=== PATIENT | female | born 1950 | race Caucasian/White ===

== ENCOUNTER 2017-11-14 11:47 | Emergency (ER) | payer MEDICARE, OTHER ==
[2017-11-14] MEDS: KETOROLAC 15 MG INJ IM (15:35)
[2017-11-14 15:41] LABS: ADD MAN DIFF? NO
[2017-11-14 15:43] LABS: WHITE BLOOD COUNT 6.5 10^3/ul (4.8-10.8)
[2017-11-14 15:43] LABS: BASOPHILS % 0.5 % (0.0-2.0); EOSINOPHILS # 0.1 10^3/ul (0.0-0.5); EOSINOPHILS % 0.8 % (0.0-7.0); HEMATOCRIT 52.1 % (37.0-47.0); HEMOGLOBIN 17.6 g/dl (12.0-16.0); LYMPHOCYTES # 2.4 10^3/ul (0.8-2.9); LYMPHOCYTES % 36.8 % (15.0-51.0); MEAN CORPUSCULAR HEMOGLOBIN 32.2 pg (29.0-33.0); MEAN CORPUSCULAR HGB CONC 33.8 g/dl (32.0-37.0); MEAN CORPUSCULAR VOLUME 95.4 fl (82.0-101.0); MEAN PLATELET VOLUME 8.8 fl (7.4-10.4); MONOCYTE # 0.6 10^3/ul (0.3-0.9); MONOCYTES % 8.7 % (0.0-11.0); NEUTROPHIL # 3.5 10^3/ul (1.6-7.5); NEUTROPHILS % 52.9 % (39.0-77.0); PLATELET COUNT 308 10^3/UL (140-415); RED BLOOD COUNT 5.46 10^6/ul (4.20-5.40); RED CELL DISTRIBUTION WIDTH 14.9 % (11.5-14.5)
[2017-11-14 16:07] LABS: ANION GAP 17 (8-16); BLOOD UREA NITROGEN 18 mg/dl (7-20); CARBON DIOXIDE 23 mmol/L (21-31); CHLORIDE 107 mmol/L (97-110); CREATININE 1.15 mg/dl (0.44-1.00); GLUCOSE 127 mg/dl (70-220); POTASSIUM 3.5 mmol/L (3.5-5.1); SODIUM 143 mmol/L (135-144)
== END 2017-11-14 17:49 | disposition home or self-care (01) ==
LOC: E/R 11:47
DX: M79.604 Pain in right leg (principal); I10 Essential (primary) hypertension; F17.210 Nicotine dependence, cigarettes, uncomplicated
CPT/HCPCS: 73550; 80048; 85025; 96372; 99284-25

== ENCOUNTER 2017-11-18 21:27 | Inpatient (IN) | payer MEDICARE, OTHER ==
[2017-11-19 02:34] LABS: ADD MAN DIFF? NO
[2017-11-19 02:35] LABS: WHITE BLOOD COUNT 5.8 10^3/ul (4.8-10.8)
[2017-11-19 02:35] LABS: BASOPHILS % 0.3 % (0.0-2.0); EOSINOPHILS # 0.1 10^3/ul (0.0-0.5); HEMATOCRIT 50.6 % (37.0-47.0); HEMOGLOBIN 16.9 g/dl (12.0-16.0); LYMPHOCYTES # 2.3 10^3/ul (0.8-2.9); LYMPHOCYTES % 39.4 % (15.0-51.0); MEAN CORPUSCULAR HEMOGLOBIN 32.6 pg (29.0-33.0); MEAN CORPUSCULAR HGB CONC 33.4 g/dl (32.0-37.0); MEAN CORPUSCULAR VOLUME 97.5 fl (82.0-101.0); MEAN PLATELET VOLUME 9.1 fl (7.4-10.4); MONOCYTE # 0.6 10^3/ul (0.3-0.9); MONOCYTES % 9.8 % (0.0-11.0); NEUTROPHIL # 2.9 10^3/ul (1.6-7.5); NEUTROPHILS % 49.3 % (39.0-77.0); PLATELET COUNT 284 10^3/UL (140-415); RED BLOOD COUNT 5.19 10^6/ul (4.20-5.40); RED CELL DISTRIBUTION WIDTH 14.8 % (11.5-14.5)
[2017-11-19 02:57] LABS: ANION GAP 15 (8-16); BLOOD UREA NITROGEN 18 mg/dl (7-20); CALCIUM 9.7 mg/dl (8.4-10.2); CARBON DIOXIDE 30 mmol/L (21-31); CHLORIDE 107 mmol/L (97-110); GLUCOSE 126 mg/dl (70-220); POTASSIUM 3.5 mmol/L (3.5-5.1); SODIUM 148 mmol/L (135-144)
[2017-11-19 02:58] LABS: INR 0.94; PARTIAL THROMBOPLASTIN TIME 29.5 Sec (25.0-35.0); PROTIME 12.7 Sec (11.9-14.9)
[2017-11-19] MEDS: morphine 4 MG/ML VIAL IV (03:09)
[2017-11-19] MEDS: ONDANSETRON 4 MG INJ IV (03:09)
[2017-11-19] MEDS: hydrALAzine 20 MG INJ IV ×3 (03:35→21:37)
[2017-11-19] MEDS ORDERED: ACETAMINOPHEN 325 MG TAB PO (04:30)
[2017-11-19] MEDS ORDERED: ALBUTEROL/IPRATROPIUM (NEB) 3 ML AMP HHN (04:30)
[2017-11-19] MEDS ORDERED: NACL 0.9% 3 ML SYG IV (04:30)
[2017-11-19] MEDS: SOD CHLORIDE 0.9% 1,000 ML IV ×3 (06:35→23:32)
[2017-11-19 06:54] LABS: ADD MAN DIFF? NO
[2017-11-19 06:59] LABS: WHITE BLOOD COUNT 6.8 10^3/ul (4.8-10.8)
[2017-11-19 06:59] LABS: BASOPHILS % 0.4 % (0.0-2.0); EOSINOPHILS # 0.1 10^3/ul (0.0-0.5); EOSINOPHILS % 0.7 % (0.0-7.0); HEMATOCRIT 50.1 % (37.0-47.0); HEMOGLOBIN 16.7 g/dl (12.0-16.0); LYMPHOCYTES # 2.5 10^3/ul (0.8-2.9); LYMPHOCYTES % 36.7 % (15.0-51.0); MEAN CORPUSCULAR HEMOGLOBIN 32.5 pg (29.0-33.0); MEAN CORPUSCULAR HGB CONC 33.3 g/dl (32.0-37.0); MEAN CORPUSCULAR VOLUME 97.5 fl (82.0-101.0); MEAN PLATELET VOLUME 9.2 fl (7.4-10.4); MONOCYTE # 0.6 10^3/ul (0.3-0.9); MONOCYTES % 8.4 % (0.0-11.0); NEUTROPHIL # 3.6 10^3/ul (1.6-7.5); NEUTROPHILS % 53.7 % (39.0-77.0); PLATELET COUNT 298 10^3/UL (140-415); RED BLOOD COUNT 5.14 10^6/ul (4.20-5.40); RED CELL DISTRIBUTION WIDTH 14.7 % (11.5-14.5)
[2017-11-19 07:16] LABS: ALANINE AMINOTRANSFERASE 15 IU/L (13-69); ALBUMIN 3.7 g/dl (3.3-4.9); ALBUMIN/GLOBULIN RATIO 0.88; ALKALINE PHOSPHATASE 79 IU/L (42-121); ANION GAP 14 (8-16); ASPARTATE AMINO TRANSFERASE 28 IU/L (15-46); BILIRUBIN,INDIRECT 0.3 mg/dl (0-1.1); BILIRUBIN,TOTAL 0.3 mg/dl (0.2-1.3); BLOOD UREA NITROGEN 17 mg/dl (7-20); CALCIUM 9.2 mg/dl (8.4-10.2); CARBON DIOXIDE 24 mmol/L (21-31); CHLORIDE 110 mmol/L (97-110); CREATININE 0.91 mg/dl (0.44-1.00); GLUCOSE 116 mg/dl (70-220); LACTATE DEHYDROGENASE 630 IU/L (313-618); POTASSIUM 3.4 mmol/L (3.5-5.1); SODIUM 145 mmol/L (135-144); TOTAL PROTEIN 7.9 g/dl (6.1-8.1); URIC ACID 7.3 mg/dl (3.1-7.9)
[2017-11-19] MEDS: morphine 2 MG INJ IV ×4 (08:52→22:20)
[2017-11-19] MEDS: HEPARIN 5,000 UNIT/0.5 ML VIAL SC ×2 (09:08→20:07)
[2017-11-19] MEDS: POTASSIUM CHLORIDE (SR) 20 MEQ TAB PO ×2 (12:25→17:37)
[2017-11-19] MEDS: METOPROLOL 25 MG TAB PO ×2 (12:25→20:12)
[2017-11-19 13:47] LABS: ADD UMIC NO; UR ASCORBIC ACID NEGATIVE (NEGATIVE); UR BILIRUBIN (Dip) NEGATIVE (NEGATIVE); UR BLOOD (Dip) NEGATIVE (NEGATIVE); UR CLARITY CLEAR (CLEAR); UR COLOR YELLOW (YELLOW); UR GLUCOSE (Dip) NEGATIVE (NEGATIVE); UR KETONES (Dip) NEGATIVE (NEGATIVE); UR LEUKOCYTE ESTERASE (Dip) NEGATIVE Leu/ul (NEGATIVE); UR NITRITE (Dip) NEGATIVE (NEGATIVE); UR SPECIFIC GRAVITY (Dip) 1.014 (1.003-1.030); UR TOTAL PROTEIN (Dip) NEGATIVE (NEGATIVE); UR UROBILINOGEN (Dip) NEGATIVE (NEGATIVE)
[2017-11-19] MEDS: SOD CHLORIDE 0.9% 100 ML (14:16)
[2017-11-19] MEDS: IOHEXOL 300MG/ML 150 ML BTL (14:17)
[2017-11-19] MEDS: HYDROCODONE/APAP (5/325) TAB PO (15:43)
[2017-11-20] MEDS: morphine 2 MG INJ IV ×4 (02:29→20:23)
[2017-11-20 05:54] LABS: ADD MAN DIFF? NO
[2017-11-20 06:10] LABS: BASOPHILS % 0.4 % (0.0-2.0); EOSINOPHILS # 0.1 10^3/ul (0.0-0.5); EOSINOPHILS % 2.1 % (0.0-7.0); HEMATOCRIT 47.2 % (37.0-47.0); HEMOGLOBIN 15.6 g/dl (12.0-16.0); LYMPHOCYTES # 2.1 10^3/ul (0.8-2.9); LYMPHOCYTES % 36.8 % (15.0-51.0); MEAN CORPUSCULAR HEMOGLOBIN 32.4 pg (29.0-33.0); MEAN CORPUSCULAR HGB CONC 33.1 g/dl (32.0-37.0); MEAN CORPUSCULAR VOLUME 97.9 fl (82.0-101.0); MEAN PLATELET VOLUME 9.1 fl (7.4-10.4); MONOCYTE # 0.7 10^3/ul (0.3-0.9); NEUTROPHIL # 2.8 10^3/ul (1.6-7.5); NEUTROPHILS % 48.5 % (39.0-77.0); PLATELET COUNT 291 10^3/UL (140-415); RED BLOOD COUNT 4.82 10^6/ul (4.20-5.40)
[2017-11-20 06:10] LABS: WHITE BLOOD COUNT 5.7 10^3/ul (4.8-10.8)
[2017-11-20 06:32] LABS: ANION GAP 12 (8-16); BLOOD UREA NITROGEN 14 mg/dl (7-20); CALCIUM 9.3 mg/dl (8.4-10.2); CARBON DIOXIDE 25 mmol/L (21-31); CHLORIDE 112 mmol/L (97-110); CREATININE 0.92 mg/dl (0.44-1.00); GLUCOSE 101 mg/dl (70-220); MAGNESIUM 1.9 mg/dl (1.7-2.5); PHOSPHORUS 3.5 mg/dl (2.5-4.9); POTASSIUM 4.4 mmol/L (3.5-5.1); SODIUM 145 mmol/L (135-144)
[2017-11-20] MEDS: SOD CHLORIDE 0.9% 1,000 ML IV (06:45)
[2017-11-20] MEDS: SENNA/DOCUSATE NA (8.6MG/50MG) TAB PO (08:18)
[2017-11-20] MEDS: POLYETHYLENE GLYCOL 17 GM PACKET PO (08:19)
[2017-11-20] MEDS: METOPROLOL 25 MG TAB PO ×2 (08:19→21:16)
[2017-11-20 08:32] LABS: CREATINE KINASE 75 IU/L (23-200)
[2017-11-20] MEDS: HEPARIN 5,000 UNIT/0.5 ML VIAL SC (08:41)
[2017-11-20 09:04] LABS: CARCINOEMBRYONIC ANTIGEN 9.6 ng/ml (0.0-5.0)
[2017-11-20] MEDS: hydrALAzine 20 MG INJ IV ×2 (09:36→20:24)
[2017-11-21] MEDS: morphine 2 MG INJ IV ×4 (00:29→22:35)
[2017-11-21] MEDS: HYDROmorphONE 2 MG TAB PO (02:35)
[2017-11-21 06:17] LABS: ADD MAN DIFF? NO
[2017-11-21 06:20] LABS: WHITE BLOOD COUNT 5.2 10^3/ul (4.8-10.8)
[2017-11-21 06:20] LABS: BASOPHILS % 0.4 % (0.0-2.0); EOSINOPHILS # 0.2 10^3/ul (0.0-0.5); EOSINOPHILS % 4.6 % (0.0-7.0); HEMATOCRIT 46.3 % (37.0-47.0); HEMOGLOBIN 15.4 g/dl (12.0-16.0); LYMPHOCYTES # 2.2 10^3/ul (0.8-2.9); LYMPHOCYTES % 42.6 % (15.0-51.0); MEAN CORPUSCULAR HEMOGLOBIN 32.5 pg (29.0-33.0); MEAN CORPUSCULAR HGB CONC 33.3 g/dl (32.0-37.0); MEAN CORPUSCULAR VOLUME 97.7 fl (82.0-101.0); MEAN PLATELET VOLUME 9.2 fl (7.4-10.4); MONOCYTE # 0.6 10^3/ul (0.3-0.9); MONOCYTES % 12.1 % (0.0-11.0); NEUTROPHIL # 2.1 10^3/ul (1.6-7.5); NEUTROPHILS % 40.1 % (39.0-77.0); PLATELET COUNT 312 10^3/UL (140-415); RED BLOOD COUNT 4.74 10^6/ul (4.20-5.40); RED CELL DISTRIBUTION WIDTH 14.6 % (11.5-14.5)
[2017-11-21 06:57] LABS: ANION GAP 13 (8-16); BLOOD UREA NITROGEN 12 mg/dl (7-20); CARBON DIOXIDE 26 mmol/L (21-31); CHLORIDE 108 mmol/L (97-110); CREATININE 0.94 mg/dl (0.44-1.00); GLUCOSE 101 mg/dl (70-220); MAGNESIUM 1.9 mg/dl (1.7-2.5); SODIUM 143 mmol/L (135-144)
[2017-11-21 07:21] LABS: CANCER ANTIGEN 125 25.4 U/ml (0.0-35.0)
[2017-11-21] MEDS: SENNA/DOCUSATE NA (8.6MG/50MG) TAB PO (08:29)
[2017-11-21] MEDS: LISINOPRIL 20 MG TAB PO (08:32)
[2017-11-21] MEDS: METOPROLOL 25 MG TAB PO ×2 (08:33→21:38)
[2017-11-21] MEDS: POLYETHYLENE GLYCOL 17 GM PACKET PO ×2 (08:38→15:35)
[2017-11-21] MEDS: ENOXAPARIN 40 MG/0.4 ML SYG SC (08:42)
[2017-11-21] MEDS: BACLOFEN 10 MG TAB PO ×2 (13:12→21:36)
[2017-11-21] MEDS: SOD CHLORIDE 0.9% 100 ML (20:17)
[2017-11-21] MEDS: IOHEXOL 300MG/ML 150 ML BTL (20:18)
[2017-11-22] MEDS: morphine 2 MG INJ IV ×4 (02:27→21:49)
[2017-11-22 06:14] LABS: ADD MAN DIFF? NO
[2017-11-22 06:24] LABS: WHITE BLOOD COUNT 5.1 10^3/ul (4.8-10.8)
[2017-11-22 06:24] LABS: BASOPHILS % 0.6 % (0.0-2.0); EOSINOPHILS # 0.2 10^3/ul (0.0-0.5); EOSINOPHILS % 4.7 % (0.0-7.0); HEMATOCRIT 43.3 % (37.0-47.0); HEMOGLOBIN 14.4 g/dl (12.0-16.0); LYMPHOCYTES # 1.8 10^3/ul (0.8-2.9); MEAN CORPUSCULAR HEMOGLOBIN 32.3 pg (29.0-33.0); MEAN CORPUSCULAR HGB CONC 33.3 g/dl (32.0-37.0); MEAN CORPUSCULAR VOLUME 97.1 fl (82.0-101.0); MEAN PLATELET VOLUME 9.5 fl (7.4-10.4); MONOCYTE # 0.6 10^3/ul (0.3-0.9); MONOCYTES % 11.2 % (0.0-11.0); NEUTROPHIL # 2.4 10^3/ul (1.6-7.5); NEUTROPHILS % 47.3 % (39.0-77.0); PLATELET COUNT 316 10^3/UL (140-415); RED BLOOD COUNT 4.46 10^6/ul (4.20-5.40); RED CELL DISTRIBUTION WIDTH 14.4 % (11.5-14.5)
[2017-11-22 06:44] LABS: PHOSPHORUS 4.4 mg/dl (2.5-4.9)
[2017-11-22 06:44] LABS: MAGNESIUM 1.8 mg/dl (1.7-2.5)
[2017-11-22 06:49] LABS: ANION GAP 11 (8-16); BLOOD UREA NITROGEN 12 mg/dl (7-20); CALCIUM 8.9 mg/dl (8.4-10.2); CARBON DIOXIDE 26 mmol/L (21-31); CHLORIDE 109 mmol/L (97-110); CREATININE 0.93 mg/dl (0.44-1.00); GLUCOSE 95 mg/dl (70-220); SODIUM 142 mmol/L (135-144)
[2017-11-22] MEDS: BACLOFEN 10 MG TAB PO ×3 (08:27→20:34)
[2017-11-22] MEDS: METOPROLOL 25 MG TAB PO ×2 (08:28→21:00)
[2017-11-22] MEDS: ENOXAPARIN 40 MG/0.4 ML SYG SC (08:30)
[2017-11-22] MEDS: LISINOPRIL 20 MG TAB PO (08:31)
[2017-11-22] MEDS: POLYETHYLENE GLYCOL 17 GM PACKET PO (08:46)
[2017-11-22] MEDS: SENNA/DOCUSATE NA (8.6MG/50MG) TAB PO (08:46)
[2017-11-22 15:42] LABS: MYOGLOBIN 37 mcg/L (< 67)
[2017-11-23] MEDS: morphine 2 MG INJ IV ×2 (03:09→09:29)
[2017-11-23] MEDS: hydrALAzine 20 MG INJ IV ×2 (03:09→20:24)
[2017-11-23 06:01] LABS: ADD MAN DIFF? NO
[2017-11-23 06:10] LABS: BASOPHILS % 0.6 % (0.0-2.0); EOSINOPHILS # 0.2 10^3/ul (0.0-0.5); EOSINOPHILS % 3.5 % (0.0-7.0); HEMATOCRIT 47.4 % (37.0-47.0); HEMOGLOBIN 15.8 g/dl (12.0-16.0); LYMPHOCYTES # 2.2 10^3/ul (0.8-2.9); LYMPHOCYTES % 43.7 % (15.0-51.0); MEAN CORPUSCULAR HEMOGLOBIN 32.4 pg (29.0-33.0); MEAN CORPUSCULAR HGB CONC 33.3 g/dl (32.0-37.0); MEAN CORPUSCULAR VOLUME 97.3 fl (82.0-101.0); MEAN PLATELET VOLUME 9.6 fl (7.4-10.4); MONOCYTE # 0.4 10^3/ul (0.3-0.9); MONOCYTES % 8.7 % (0.0-11.0); NEUTROPHIL # 2.2 10^3/ul (1.6-7.5); NEUTROPHILS % 43.3 % (39.0-77.0); PLATELET COUNT 339 10^3/UL (140-415); RED BLOOD COUNT 4.87 10^6/ul (4.20-5.40); RED CELL DISTRIBUTION WIDTH 14.2 % (11.5-14.5)
[2017-11-23 06:10] LABS: WHITE BLOOD COUNT 5.1 10^3/ul (4.8-10.8)
[2017-11-23 06:35] LABS: ANION GAP 15 (8-16); BLOOD UREA NITROGEN 13 mg/dl (7-20); CARBON DIOXIDE 27 mmol/L (21-31); CHLORIDE 107 mmol/L (97-110); CREATININE 0.89 mg/dl (0.44-1.00); GLUCOSE 101 mg/dl (70-220); SODIUM 145 mmol/L (135-144)
[2017-11-23] MEDS: SENNA/DOCUSATE NA (8.6MG/50MG) TAB PO (09:17)
[2017-11-23] MEDS: POLYETHYLENE GLYCOL 17 GM PACKET PO (09:17)
[2017-11-23] MEDS: METOPROLOL 25 MG TAB PO (09:18)
[2017-11-23] MEDS: BACLOFEN 10 MG TAB PO ×3 (09:18→20:22)
[2017-11-23] MEDS: LISINOPRIL 20 MG TAB PO (09:19)
[2017-11-23] MEDS: ENOXAPARIN 40 MG/0.4 ML SYG SC (09:28)
[2017-11-23] MEDS: AMLODIPINE 10 MG TAB PO (13:11)
[2017-11-23] MEDS: HYDROmorphONE 0.5 MG/0.5 ML SYG IV ×4 (15:57→22:51)
[2017-11-24] MEDS: hydrALAzine 20 MG INJ IV (02:36)
[2017-11-24] MEDS: HYDROCODONE/APAP (10/325) TAB PO ×2 (02:37→08:00)
[2017-11-24 05:37] LABS: ADD MAN DIFF? NO
[2017-11-24 05:47] LABS: BASOPHILS % 0.6 % (0.0-2.0); EOSINOPHILS # 0.1 10^3/ul (0.0-0.5); EOSINOPHILS % 2.6 % (0.0-7.0); HEMATOCRIT 45.1 % (37.0-47.0); LYMPHOCYTES % 39.1 % (15.0-51.0); MEAN CORPUSCULAR HEMOGLOBIN 32.1 pg (29.0-33.0); MEAN CORPUSCULAR HGB CONC 33.3 g/dl (32.0-37.0); MEAN CORPUSCULAR VOLUME 96.6 fl (82.0-101.0); MEAN PLATELET VOLUME 9.2 fl (7.4-10.4); MONOCYTE # 0.6 10^3/ul (0.3-0.9); MONOCYTES % 10.9 % (0.0-11.0); NEUTROPHIL # 2.4 10^3/ul (1.6-7.5); NEUTROPHILS % 46.6 % (39.0-77.0); PLATELET COUNT 318 10^3/UL (140-415); RED BLOOD COUNT 4.67 10^6/ul (4.20-5.40); RED CELL DISTRIBUTION WIDTH 14.4 % (11.5-14.5)
[2017-11-24] MEDS: ONDANSETRON 4 MG INJ IV (05:50)
[2017-11-24 06:25] LABS: ANION GAP 12 (8-16); BLOOD UREA NITROGEN 11 mg/dl (7-20); CALCIUM 9.1 mg/dl (8.4-10.2); CARBON DIOXIDE 27 mmol/L (21-31); CHLORIDE 108 mmol/L (97-110); CREATININE 0.94 mg/dl (0.44-1.00); GLUCOSE 108 mg/dl (70-220); POTASSIUM 3.9 mmol/L (3.5-5.1); SODIUM 143 mmol/L (135-144)
[2017-11-24] MEDS: POLYETHYLENE GLYCOL 17 GM PACKET PO (08:00)
[2017-11-24] MEDS: SENNA/DOCUSATE NA (8.6MG/50MG) TAB PO (08:03)
[2017-11-24] MEDS: AMLODIPINE 10 MG TAB PO (08:05)
[2017-11-24] MEDS: BACLOFEN 10 MG TAB PO ×3 (08:05→20:46)
[2017-11-24] MEDS: ENOXAPARIN 40 MG/0.4 ML SYG SC (08:06)
[2017-11-24] MEDS: LISINOPRIL 20 MG TAB PO (08:07)
[2017-11-24] MEDS: HYDROmorphONE 2 MG TAB PO ×2 (11:28→16:21)
[2017-11-24 12:33] LABS: CA27.29 54 U/mL (<38)
[2017-11-24] MEDS: GABAPENTIN 100 MG CAP PO ×2 (13:13→20:46)
[2017-11-24] MEDS: HYDROCHLOROTHIAZIDE 12.5 MG CAP PO (13:14)
[2017-11-24] MEDS: LIDOCAINE 1% (MDV) 10 ML INJ (14:58)
[2017-11-24] MEDS ORDERED: VITAMIN A & D 5 GM OINT PACKET TOP (16:19)
[2017-11-24 20:38] LABS: CANCER ANTIGEN 15-3 31 U/mL (<32)
[2017-11-24] MEDS ORDERED: LORAZEPAM 2 MG INJ IV (21:00)
[2017-11-24] MEDS: LORAZEPAM 0.5 MG TAB PO (21:54)
[2017-11-25] MEDS: ENOXAPARIN 40 MG/0.4 ML SYG SC (08:41)
[2017-11-25] MEDS: SENNA/DOCUSATE NA (8.6MG/50MG) TAB PO (08:42)
[2017-11-25] MEDS: POLYETHYLENE GLYCOL 17 GM PACKET PO (08:42)
[2017-11-25] MEDS: HYDROCODONE/APAP (10/325) TAB PO ×4 (08:43→18:59)
[2017-11-25] MEDS: GABAPENTIN 100 MG CAP PO ×3 (08:43→20:47)
[2017-11-25] MEDS: BACLOFEN 10 MG TAB PO ×3 (08:43→20:47)
[2017-11-25] MEDS: LISINOPRIL 20 MG TAB PO (08:45)
[2017-11-25] MEDS: HYDROCHLOROTHIAZIDE 12.5 MG CAP PO (08:45)
[2017-11-25] MEDS: AMLODIPINE 10 MG TAB PO (08:46)
[2017-11-26] MEDS: HYDROCODONE/APAP (10/325) TAB PO (01:51)
[2017-11-26] MEDS: HYDROmorphONE 2 MG TAB PO (08:43)
[2017-11-26] MEDS: GABAPENTIN 100 MG CAP PO ×3 (08:43→21:14)
[2017-11-26] MEDS: SENNA/DOCUSATE NA (8.6MG/50MG) TAB PO (08:43)
[2017-11-26] MEDS: BACLOFEN 10 MG TAB PO ×3 (08:44→21:14)
[2017-11-26] MEDS: HYDROCHLOROTHIAZIDE 12.5 MG CAP PO (08:44)
[2017-11-26] MEDS: AMLODIPINE 10 MG TAB PO (08:44)
[2017-11-26] MEDS: LISINOPRIL 20 MG TAB PO (08:44)
[2017-11-26] MEDS: POLYETHYLENE GLYCOL 17 GM PACKET PO (08:45)
[2017-11-26] MEDS: ENOXAPARIN 40 MG/0.4 ML SYG SC (08:47)
[2017-11-26] MEDS: NIFEdipine (XL) 60 MG TAB PO (13:09)
[2017-11-26] MEDS: hydrALAzine 20 MG INJ IV (17:04)
[2017-11-27] MEDS: HYDROCODONE/APAP (10/325) TAB PO ×2 (02:23→17:26)
[2017-11-27] MEDS: HYDROCHLOROTHIAZIDE 12.5 MG CAP PO (09:00)
[2017-11-27] MEDS: SENNA/DOCUSATE NA (8.6MG/50MG) TAB PO (09:00)
[2017-11-27] MEDS: POLYETHYLENE GLYCOL 17 GM PACKET PO (09:00)
[2017-11-27] MEDS: ENOXAPARIN 40 MG/0.4 ML SYG SC (09:00)
[2017-11-27] MEDS: GABAPENTIN 100 MG CAP PO ×3 (09:58→21:11)
[2017-11-27] MEDS: BACLOFEN 10 MG TAB PO ×3 (09:58→21:11)
[2017-11-27] MEDS: LISINOPRIL 20 MG TAB PO (10:08)
[2017-11-27] MEDS: NIFEdipine (XL) 60 MG TAB PO (10:09)
[2017-11-27] MEDS: SOD CHLORIDE 0.9% 500 ML (15:30)
[2017-11-27] MEDS: DIPHENHYDRAMINE 50 MG INJ (16:00)
[2017-11-27] MEDS: FENTAnyl 50 MCG/ML VIAL (16:05)
[2017-11-27] MEDS: LIDOCAINE 1% (MDV) 10 ML INJ ×2 (16:05→16:06)
[2017-11-27] MEDS: MIDAZOLAM 1 MG/ML 2 ML INJ (16:06)
[2017-11-28] MEDS: HYDROCODONE/APAP (10/325) TAB PO ×3 (06:08→21:21)
[2017-11-28] MEDS: BACLOFEN 10 MG TAB PO ×3 (08:32→21:30)
[2017-11-28] MEDS: POLYETHYLENE GLYCOL 17 GM PACKET PO (08:32)
[2017-11-28] MEDS: GABAPENTIN 100 MG CAP PO ×3 (08:32→21:30)
[2017-11-28] MEDS: SENNA/DOCUSATE NA (8.6MG/50MG) TAB PO (08:34)
[2017-11-28] MEDS: LISINOPRIL 20 MG TAB PO (08:35)
[2017-11-28] MEDS: NIFEdipine (XL) 90 MG TAB PO (08:35)
[2017-11-28] MEDS: HYDROCHLOROTHIAZIDE 12.5 MG CAP PO (08:35)
[2017-11-28] MEDS: ENOXAPARIN 40 MG/0.4 ML SYG SC (08:37)
[2017-11-28 10:55] LABS: FREE T4 (FREE THYROXINE) 0.92 ng/dl (0.78-2.44)
[2017-11-28 11:09] LABS: HEPATITIS B SURFACE ANTIGEN NEGATIVE (NEGATIVE)
[2017-11-28 11:26] LABS: HEPATITIS C VIRAL ANTIBODY NEGATIVE (NEGATIVE)
[2017-11-29] MEDS: HYDROmorphONE 2 MG TAB PO (02:10)
[2017-11-29] MEDS: HYDROCODONE/APAP (10/325) TAB PO (05:34)
[2017-11-29] MEDS: GABAPENTIN 100 MG CAP PO (08:41)
[2017-11-29] MEDS: POLYETHYLENE GLYCOL 17 GM PACKET PO (08:41)
[2017-11-29] MEDS: SENNA/DOCUSATE NA (8.6MG/50MG) TAB PO (08:42)
[2017-11-29] MEDS: NIFEdipine (XL) 90 MG TAB PO (08:42)
[2017-11-29] MEDS: BACLOFEN 10 MG TAB PO (08:42)
[2017-11-29] MEDS: HYDROCHLOROTHIAZIDE 12.5 MG CAP PO (08:42)
[2017-11-29] MEDS: LISINOPRIL 20 MG TAB PO (08:42)
[2017-11-29] MEDS: ENOXAPARIN 40 MG/0.4 ML SYG SC (08:44)
== END 2017-11-29 12:35 | disposition home health service (06) | DRG 478 ==
LOC: E/R 21:27 → MS2 11-19 03:59
PROC: 0HBU3ZX Excision of Left Breast, Percutaneous Approach, Diagnostic (ICD-10-PCS; principal; 2017-11-24)
PROC: 0QB33ZX Excision of Left Pelvic Bone, Percutaneous Approach, Diagnostic (ICD-10-PCS; 2017-11-27)
DX: C79.51 Secondary malignant neoplasm of bone (principal); C79.89 Secondary malignant neoplasm of other specified sites; C77.9 Secondary and unspecified malignant neoplasm of lymph node, unspecified; N17.9 Acute kidney failure, unspecified; K76.89 Other specified diseases of liver; C50.412 Malignant neoplasm of upper-outer quadrant of left female breast; D25.0 Submucous leiomyoma of uterus; E04.9 Nontoxic goiter, unspecified; F17.200 Nicotine dependence, unspecified, uncomplicated; G57.11 Meralgia paresthetica, right lower limb; I10 Essential (primary) hypertension; S89.91XA Unspecified injury of right lower leg, initial encounter; M79.651 Pain in right thigh; M25.571 Pain in right ankle and joints of right foot; M48.061 Spinal stenosis, lumbar region without neurogenic claudication; M51.36 Other intervertebral disc degeneration, lumbar region; W01.0XXA Fall on same level from slipping, tripping and stumbling without subsequent striking against object, initial encounter
CPT/HCPCS: 71045; 71260; 72148; 72197; 73590; 73700; 74176; 76642; 76942; 77012; 78306; 80048; 80053; 81003; 82378; 82550; 83615; 83735; 83874; 84100; 84439; 84443; 84560; 85025; 85610; 85730; 86300; 86304; 86803; 87340; 88307; 88313; 93971; 97116; 97163; 97530; A9503

== ENCOUNTER 2018-08-21 23:06 | Emergency (ER) | payer MEDICARE, OTHER ==
[2018-08-22 00:19] LABS: ADD MAN DIFF? NO
[2018-08-22 00:21] LABS: BASOPHILS % 0.5 % (0.0-2.0); EOSINOPHILS # 0.1 10^3/ul (0.0-0.5); EOSINOPHILS % 2.3 % (0.0-7.0); HEMATOCRIT 36.3 % (37.0-47.0); HEMOGLOBIN 12.3 g/dl (12.0-16.0); LYMPHOCYTES # 1.7 10^3/ul (0.8-2.9); LYMPHOCYTES % 40.3 % (15.0-51.0); MEAN CORPUSCULAR HEMOGLOBIN 31.5 pg (29.0-33.0); MEAN CORPUSCULAR HGB CONC 33.9 g/dl (32.0-37.0); MEAN CORPUSCULAR VOLUME 93.1 fl (82.0-101.0); MEAN PLATELET VOLUME 9.3 fl (7.4-10.4); MONOCYTE # 0.5 10^3/ul (0.3-0.9); MONOCYTES % 11.7 % (0.0-11.0); NEUTROPHIL # 1.9 10^3/ul (1.6-7.5); PLATELET COUNT 279 10^3/UL (140-415); RED CELL DISTRIBUTION WIDTH 12.7 % (11.5-14.5)
[2018-08-22 00:21] LABS: WHITE BLOOD COUNT 4.3 10^3/ul (4.8-10.8)
[2018-08-22] MEDS: MINERAL OIL 133 ML ENEMA PR (00:30)
[2018-08-22] MEDS: MAGNESIUM CITRATE 300 ML BTL PO (00:49)
== END 2018-08-22 02:37 | disposition home or self-care (01) ==
LOC: E/R 23:06
DX: K59.00 Constipation, unspecified (principal); F17.210 Nicotine dependence, cigarettes, uncomplicated
CPT/HCPCS: 36415; 85025; 99283